=== PATIENT | male | born 1960 | race Hispanic/Latino ===

== ENCOUNTER 2019-06-04 09:00 | Emergency (ER) | payer OTHER ==
[2019-06-04 09:30] VITALS: TEMP 97.2; O2SAT 95
--- NOTE | 2019-06-04 09:38 | ED.PDOC ---
History of Present Illness - General Chief Complaint: Problem Stated Complaint: R testicular pain Time Seen by Provider: 06/04/19 09:36 Source: patient Exam Limitations: no limitations - History of Present Illness Initial Comments: Brenton Reed 58 y/o male came to ER with dull right testicular pain for the last 2 days .Denies history of trauma to testes.Has history of metastasic testicular cancer underwent radiation and chemotherapy.Denies also fever,N/V. Timing/Duration: yesterday Quality: moderate, dull Onset Location: other - see hpi Radiation: none Activites at Onset: none Prior abdominal problems: none Sexual intercourse history: not active Improving Factors: nothing Worsening Factors: nothing Associated Symptoms: other - see hpi Allergies/Adverse Reactions: Allergies NO KNOWN ALLERGY Allergy (Verified 06/04/19 09:36) Home Medications: Ambulatory Orders Acetaminophen W/ Codeine [Tylenol/Codeine #4 300-60 mg] 1 ea PO Q4HR PRN #14 tab 06/04/19 Sulfamethoxazole-Trimethoprim [Bactrim Ds 800-160 mg] 1 tab PO BID 15 Days #30 tab 06/04/19 Review of Systems - Review of Systems Genitourinary: States: see HPI, other - testicular pain All other Systems: Reviewed and Negative, No Change from Baseline Past Medical History (General) - Patient Medical History Hx Stroke: No Hx of COPD: No Hx Cardiac Disorders: No Hx Hypertension: No Hx Diabetes: Yes Hx Cancer: Yes - Prostate and bone Surgical History: no surgical history - nephrostomy tube, other - Vaccination History Hx Tetanus, Diphtheria Vaccination: Yes Hx Influenza Vaccination: Yes Hx Pneumococcal Vaccination: Yes - Social History Hx Tobacco Use: Yes Hx Alcohol Use: Yes - Ocassional - Female History Patient is a Female of Child Bearing Age (10 -59 yrs old): No Patient : No Family Medical History - Family History Mother Family History: Unknown Hx Family Diabetes: Yes - brother/mom Physical Exam - Physical Exam General Appearance: Alert, No apparent distress Eyes, Ears, Nose, Throat Exam: normal ENT inspection Neck: normal inspection Cardiovascular/Respiratory: regular rate, rhythm, normal peripheral pulses, normal breath sounds Gastrointestinal/Abdominal: non tender, soft, no organomegaly Male Genital Exam: no hernia, scrotum tenderness (R), testicular tenderness (R), other - tenderness epiddydimytis Back Exam: normal inspection Extremity: normal inspection Neurologic: alert, oriented x 3 Skin Exam: warm/dry Progress - Progress Progress: 06/04/19 09:46 Vital Signs - 24 hr 06/04/19 09:15 Temperature 97.2 F L Pulse Rate [L 78 finger] Respiratory 18 Rate Blood Pressure 120/81 [L brachial] O2 Sat by Pulse 95 Oximetry - EKG/XRAY/CT Xray Comments: Testicular ultrasound-right epidydimytis Departure - Departure Clinical Impression: Epididymitis with no abscess Time of Disposition: 11:55 Disposition: Discharge to Home or Self Care Condition: Fair Departure Forms: ED Discharge - Pt. Copy, Patient Portal Self Enrollment Prescriptions: Acetaminophen W/ Codeine [Tylenol/Codeine #4 300-60 mg] 1 ea PO Q4HR PRN #14 tab PRN Reason: Pain Sulfamethoxazole-Trimethoprim [Bactrim Ds 800-160 mg] 1 tab PO BID 15 Days #30 tab Home Medications: Ambulatory Orders Acetaminophen W/ Codeine [Tylenol/Codeine #4 300-60 mg] 1 ea PO Q4HR PRN #14 tab 06/04/19 Sulfamethoxazole-Trimethoprim [Bactrim Ds 800-160 mg] 1 tab PO BID 15 Days #30 tab 06/04/19 Additional Instructions: Need to wear Jock support;follow up with primary Md for recheck on return to [place]
--- NOTE | 2019-06-04 11:30 | US ---
EXAM DESCRIPTION: Testicular: Ultrasound. CLINICAL HISTORY: 58 years Male pain-right. History of trauma at age 19. COMPARISON: None. TECHNIQUE: Transcutaneous scanning ; michael-scale and Doppler modes. FINDINGS: Dimensions of the right testicle are 3.1 x 1.9 x 1.8 cm, with small nodule measuring 4.9 x 4.8 x 4.7 mm. Similar echogenicity as the remainder of the testicle. Otherwise normal echogenicity and normal color Doppler flow. Epididymal head 8.3 x 5.5 x 5.4 mm, body and tail thickened with mostly decreased echoes and increased vascularity No scrotal wall thickening. Small Hydrocele. Dimensions of the left testicle are 2.4 x 1.5 x 1.8 cm, with heterogeneous echogenicity and normal color Doppler flow. No definite mass. Epididymal head measures 13.5 x 5.2 x 3.8 mm, with normal echogenicity and normal color Doppler flow. No scrotal wall thickening. No Hydrocele. IMPRESSION: 1. Thickened vascular hypoechoic irregular right epididymis most likely due to epididymitis. Small nodule in the right testicle may be from scarring. Well-defined and isoechoic. Small hydrocele. No scrotal wall thickening. 2. Left testicle smaller than the right testicle and inhomogeneous which may be related to prior trauma. No definite mass. Vascularity decreased compared to right testicle, probable atrophy. Epididymis unremarkable. No hydrocele or scrotal wall thickening. Electronically signed by: Paulie Caputo MD 06/04/2019 11:28 AM CDT
[2019-06-04] MEDS ORDERED: HYDROcodone 10MG/APAP 325MG 1 EA TAB PO ONE (12:10)
[2019-06-04] MEDS ORDERED: HYDROcodone 10MG/APAP 325MG 1 EA TAB ONE (12:11)
[2019-06-04 12:24] VITALS: BP 106/90
== END 2019-06-04 12:23 | disposition home or self-care (01) ==
LOC: ER 09:00
DX: N45.1 Epididymitis (principal); E11.9 Type 2 diabetes mellitus without complications; Z87.891 Personal history of nicotine dependence; Z85.46 Personal history of malignant neoplasm of prostate; Z85.830 Personal history of malignant neoplasm of bone; Z92.21 Personal history of antineoplastic chemotherapy; Z92.3 Personal history of irradiation